=== PATIENT | male | born 1945 | race Caucasian/White ===

== ENCOUNTER 2016-06-13 08:02 | Day surgery (SDC) | payer OTHER ==
[2016-06-10 10:22] LABS: HEMATOCRIT 43.9 % (40.0-51.0); HEMOGLOBIN 15.1 g/dL (13.6-17.8)
[2016-06-10 10:37] LABS: A/G RATIO 1.4 (0.7-1.9); ALBUMIN 3.8 G/DL (3.5-5.0); ALKALINE PHOSPHATASE 72 U/L (45-117); BUN (BLOOD UREA NITROGEN) 15 MG/DL (6-23); CALCIUM, SERUM 8.9 MG/DL (8.5-10.4); CHLORIDE, SERUM 108 MMOL/L (96-112); CO2 (CARBON DIOXIDE) 28 MMOL/L (24-34); CREATININE 0.89 MG/DL (0.70-1.30); GFR AFRICAN AMERICAN 101 ML/MIN (>=60); GFR NON AFRICAN AMERICAN 87 ML/MIN (>=60); GLOBULIN 2.8 G/DL (2.5-4.1); GLUCOSE, SERUM 109 MG/DL (60-99); POTASSIUM, SERUM 4.4 MMOL/L (3.5-5.3); SGOT(AST) 19 U/L (5-40); SGPT(ALT) 32 U/L (5-65); SODIUM, SERUM 143 MMOL/L (135-148); TOTAL BILIRUBIN 1.2 MG/DL (0-1.2); TOTAL PROTEIN 6.6 G/DL (6.0-8.5)
--- NOTE | ~2016-06-13 | OP ---
Record Of Operation [facility] [address] [place]. [address] NAME: RIKA PATRICK : 49 STATUS : REG [facility] PAT#: [id number] AGE: 71 ADM/REG DATE : 06/13/16 MR#: [id number] REPORT SERV DATE: 06/13/16 DICTATED BY: BURTON SCHAEFER DATE: 06/13/16 REPORT STATUS : Draft TRANSCRIBED BY: MODL DATE: 06/13/16 DATE OF PROCEDURE: 06/13/2016 PREOPERATIVE DIAGNOSES: 1. Cholelithiasis with chronic cholecystitis. 2. Hypertension. 3. Gastroesophageal reflux disease. 4. Posttraumatic stress disorder. POSTOPERATIVE DIAGNOSES: 1. Cholelithiasis with chronic cholecystitis. 2. Hypertension. 3. Gastroesophageal reflux disease. 4. Posttraumatic stress disorder. PROCEDURE: Laparoscopic cholecystectomy. ANESTHESIA: General. SURGEON: Burton Schaefer M.D. AN/SYQ 13 NAV/C2 OPERATOR: Nestor. COMPLICATIONS: None. DRAINS: None. ESTIMATED BLOOD LOSS: 20 mL. FINDINGS: The patient was noted to have a thickened gallbladder wall consistent with chronic cholecystitis. His preoperative liver function studies were normal. His cystic duct was normal size intraoperatively; therefore, no cholangiogram was obtained. OPERATIVE TECHNIQUE: The patient was brought to the operating room and placed on the table in supine position. He had preoperative antibiotics. He had sequential hose in place. He voided prior to procedure. He underwent general endotracheal anesthesia and was prepped and draped in sterile fashion. A time-out was completed. Local anesthesia was instilled to the periumbilical skin. A 15 blade knife was used to make incision through the base of the umbilicus. The skin and fascia were elevated, and the Veress needle was inserted, and water drop test safely performed. A 15 mm pneumoperitoneum was obtained. An 11 mm trocar was inserted through the umbilicus, followed by the laparoscope. There was no evidence of Veress or trocar injury. The patient was then placed in reverse Trendelenburg and rolled to the left. An 11 mm subxiphoid and two 5 mm right upper quadrant trocars were placed under direct visualization. The gallbladder fundus was grasped and elevated over the liver edge as the infundibulum was retracted inferolaterally. The cystic duct gallbladder junction was identified on its lateral aspect. It was circumferentially dissected until it was seen in Record Of Operation [facility] [address] [place]. [address] NAME: RIKA PATRICK : 49 STATUS : REG [facility] PAT#: [id number] AGE: 71 ADM/REG DATE : 06/13/16 MR#: [id number] REPORT SERV DATE: 06/13/16 DICTATED BY: BURTON SCHAEFER DATE: 06/13/16 REPORT STATUS : Draft TRANSCRIBED BY: SAUMYA DATE: 06/13/16 360-degree fashion. Dissection more medial revealed the cystic artery and it was also bluntly dissected to its junction with the gallbladder. At this point, two clips were placed proximally and distally on the cystic duct and cystic artery under direct visualization. They were then divided between the clips. The gallbladder was then removed from the fossa using electrocautery hook and extracted through the umbilicus. The laparoscope and trocar were inserted. Examination of hepatic fossa noted to be hemostatic. The clips were noted to be intact without encroachment of common bile duct. There was no evidence of any bleeding, biliary spillage, or other visual abnormalities. At this point, all instruments and trocars were removed under direct visualization as the pneumoperitoneum was aspirated. The umbilical fascia was reapproximated using a [id number] Vicryl suture. The skin edges were reapproximated using absorbable subcuticular Monocryl sutures. Dermabond was applied. He was extubated and taken to the recovery room in stable condition. All sponge and needle counts were reported correct. FELICITA/SAUMYA Burton Schaefer M.D. / [id number] CC: Shantel Lagos M.D.
[~2016-06-13 08:02] MED LIST: ASAB PO; CLARIT10 PO; MIRALAX POWDER1 PKT PO; MULTIPLE VIT PO; PRILO PO; PRIN5 PO; ZOCOR20 PO
== END 2016-06-13 19:15 | disposition home or self-care (01) ==
LOC: SDC 08:02
PROVIDERS: Surgery
PROC: 0FT44ZZ Resection of Gallbladder, Percutaneous Endoscopic Approach (ICD-10-PCS; principal; 2016-06-13 10:15)
DX: K80.10 Calculus of gallbladder with chronic cholecystitis without obstruction (principal); I10 Essential (primary) hypertension; K21.9 Gastro-esophageal reflux disease without esophagitis; F43.10 Post-traumatic stress disorder, unspecified; E78.5 Hyperlipidemia, unspecified; F41.9 Anxiety disorder, unspecified; F32.9 Major depressive disorder, single episode, unspecified; N40.0 Benign prostatic hyperplasia without lower urinary tract symptoms; Z88.5 Allergy status to narcotic agent
CPT/HCPCS: 80053; 85014; 85018; 88304; 93005; A9270-GY; J0690; J1170; J1885; J2405; J2710; J3010; Q9967